=== PATIENT | female | born 1970 | race Caucasian/White ===

== ENCOUNTER 2017-05-01 17:07 | Observation (INO) ==
[2017-05-01] MEDS ORDERED: Vancomycin 1,000 MG in D5% in Water 250 ML IVPB ONE ×2 (17:52→21:46)
[2017-05-01] MEDS ORDERED: Piperacillin/Tazobactam 3.375 GM in D5% in Water (Mini-Bag+) 100 ML IVPB ONE ×2 (17:52→20:55)
--- NOTE | 2017-05-01 17:55 | Emergency Department Note ---
Disposition Clinical Impression: Bilateral lower leg cellulitis Disposition: Admitted As Inpatient Condition: Good Referrals: Laureano Diaz MD [Primary Care Provider] - Forms: ED Satisfaction Letter Time of Disposition: 20:04 Extremity Problem HPI - General Chief complaint: ED Extremity Problem,Nontraumatic Stated complaint: leg swelling Time Seen by Provider: 05/01/17 17:40 Source: patient, EMS Mode of arrival: EMS Limitations: no limitations Nursing Notes Reviewed: Yes Vital Signs Reviewed: Yes - History of Present Illness HPI Narrative: 46-year-old female with history of diabetic neuropathy and cellulitis in her lower extremities presents with a two-week history of increasing swelling in her lower legs with increased redness. No fever. She has had some drainage. She states 3 of her toenails and fallen off in the last several days. Hospitalized about 9 months ago for the same. Pt Subjective Complaint: extremity pain, extremity swelling, other (Extremity redness) Onset (ago): week(s) (2) Consistency: constant Injury Location: left, right, lower extremity Pain Scale: 9 Quality: burning Improves with: elevation Worsens with: weight bearing, walking Associated symptoms: Reports: denies other symptoms Context: other (History of cellulitis) - Related Data Home Medications Medication Instructions Recorded Confirmed Gabapentin [Neurontin] 100 mg PO TID 05/01/17 05/01/17 NovoLOG 05/01/17 Victoza 2-Main 05/01/17 Previous Rx's Medication Instructions Recorded HYDROcodone/Acet 5/325 mg [[place] 1 tab PO Q6H PRN #120 tablet 05/23/16 5-325 mg] Insulin Glargine [Lantus] 15 unit SQ HS 365 Days 05/23/16 Levothyroxine [Synthroid] 200 mcg PO DAILY@0630 tablet 05/23/16 Potassium Chloride 10 meq PO BIDWM tab.er.prt 05/23/16 metFORMIN [Glucophage] 500 mg PO BIDWM 365 Days 05/23/16 Allergies Allergy/AdvReac Type Severity Reaction Status Date / Time No Known Allergies Allergy Verified 08/06/15 18:19 All systems ED: reviewed and negative except as stated. Constitutional: Denies: fever, chills ENT ED: Denies: ear pain, throat pain Cardiovascular: Denies: chest pain Respiratory: Denies: cough, dyspnea Gastrointestinal: Denies: abdominal pain, nausea, vomiting, diarrhea Musculoskeletal: Reports: as per HPI (Swelling of lower extremities) Integumentary: Reports: other (Erythema lower extremities) Neurological: Reports: numbness, paresthesias (Chronic) Past Medical History - Past Medical History Medical history: Reports: CHF, diabetes, hepatitis, hyperlipidemia, hypertension , kidney stones, liver disease, migraine, renal disease, thyroid disease Surgical history: Reports: (2), cholecystectomy Psychiatric history: Reports: anxiety, bipolar, depression, panic disorder, prior suicide attempt, previous psychiatric hospitalization 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 Absent: lymphadenopathy - Respiratory Respiratory exam: Present: normal lung sounds bilaterally. Absent: respiratory distress, wheezes - Cardiovascular Cardiovascular exam: Present: regular rate, normal rhythm, normal heart sounds - Abdominal Exam Abdominal exam: Present: soft, Non-Tender, other (Obese) - Extremities Exam Extremities exam: Present: other (3-4+ nonpitting edema starting just below the knees bilaterally. Mild edema of the thighs. There is diffuse erythema starting below the knees bilaterally extending down in the ankles and feet. There are some scattered areas of erythema and excoriation the right anterior lateral thigh. The toenail has fallen off both great toes in the left fourth toe.) - Neurological Exam Neurological exam: Present: alert, oriented X3 - Psychiatric Psychiatric exam: Present: normal affect, normal mood - Skin Skin exam: Present: erythema (Both lower extremities from the knees down) Course Vital Signs Temperature 98.1 F 05/01/17 17:09 Pulse Rate 90 05/01/17 17:09 Respiratory Rate 20 05/01/17 17:09 Blood Pressure 121/69 05/01/17 17:09 O2 Sat by Pulse Oximetry 98 05/01/17 17:09 Temperature 98.1 F 05/01/17 17:09 Pulse Rate 81 05/01/17 19:20 Respiratory Rate 20 05/01/17 19:20 Blood Pressure 134/17 05/01/17 19:20 O2 Sat by Pulse Oximetry 87 05/01/17 19:20 Oxygen Delivery Oxygen Delivery Room Air Procedures - Central Line Placement Right Femoral Central Line Inserted*: Yes Central Line Insertion: emergent Consent Obtained: verbal consent, written consent Procedural Pause: verify patient name and date of , timeout performed per policy, assemble equipment and verify supplies, perform hand hygiene Patient Placed on Monitor/Pulse Ox: Yes During the Procedure: clinician is wearing sterile gloves, cap, mask,& gown during insertion, sterile field and sterile technique are maintained Central Line Prep: Chlorhexidine scrub Prep the Procedure Site: apply chloraprep to the skin using a back and forth scrubbing motion, apply chloraprep for 30 seconds (upper body), 1-2 min ( femoral sites), allow prep to dry, drape the patient with a full body drape Local Anesthetic: lidocaine 1% Amount of anesthesia used (mL): 5 Ultrasound Used for Placement: No Central Line Lumen Inserted: triple Post Procedure: sutured in place, good blood return, all ports aspirated, flushed, capped, sterile dressing applied, guide wire removed and visualized Patient Tolerated Procedure: well, no complications Complications: none Name of Clinician Inserting Central Line: Wilman Ambriz MD Extremity Problem, [place] - [facility] Narrative Medical decision making narrative: Differential includes but is not limited to ask her compromised, cellulitis, dermatitis, neuropathy. - Lab Data Lab results reviewed: Yes I reviewed the patient's lab results. Result diagrams: 05/01/17 19:10 05/01/17 19:10 Lab Results 05/01/17 05/01/17 05/01/17 Range/Units 19:10 19:10 19:10 WBC 9.8 (4.3-11.1) K/mcL RBC 4.21 (3.82-4.97) M/mcL Hgb 10.2 L (11.5-15.4) g/dL Hct 32.2 L (35.3-44.9) % MCV 76.5 L (83.0-100.0) fL MCH 24.2 L (28.0-33.3) pg MCHC 31.7 (31.6-35.5) g/dL RDW 15.9 H (11.5-14.5) % Plt Count 430 H (140-400) K/mcL MPV 9.0 L (9.4-12.4) fL Immature Gran % 0.4 (0-4) % Seg Neutrophils % 63.0 % Lymphocytes % 22.4 % Monocytes % 7.4 % Eosinophils % 6.0 % Basophils % 0.8 % Neutrophils # 6.2 (1.6-8.9) K/mcL Lymphocytes # 2.2 (0.6-4.6) K/mcL Monocytes # 0.7 (0.0-1.3) K/mcL Eosinophils # 0.6 (0.0-0.6) K/mcL Basophils # 0.1 (0.0-0.2) K/mcL VBG Lactic Acid 1.3 (0.5-2.2) mmol/L Sodium 134 L (136-145) mEq/L Potassium 4.2 (3.5-4.5) mEq/L Chloride 98 (98-109) mEq/L Carbon Dioxide 25 (19-29) mEq/L BUN 20 (7-20) mg/dL Creatinine 1.21 H (0.57-1.11) mg/dL Est GFR ( Amer) 58 L (> 60) Est GFR (Non-Af Amer) 48 L (> 60) BUN/Creatinine Ratio 17 (6-26) Glucose 346 H (70-99) mg/dL Calculated Osmolality 294 (280-300) Calcium 9.1 (8.6-10.8) mg/dL Total Bilirubin 0.3 (0.2-1.2) mg/dL AST 12 (5-34) Units/L ALT 8 (0-55) Units/L Alkaline Phosphatase 95 (38-126) Units/L Serum Total Protein 7.6 (6.0-8.3) g/dL Albumin 2.7 L (3.5-5.0) g/dL Globulin 4.9 H (2.4-3.5) g/dL Albumin/Globulin Ratio 0.6 L (1.1-2.2)
[2017-05-01 19:22] LABS: Basophils # 0.1 K/mcL (0.0-0.2); Basophils % 0.8 %; Eosinophils # 0.6 K/mcL (0.0-0.6); Hematocrit 32.2 % (35.3-44.9); Hemoglobin 10.2 g/dL (11.5-15.4); Immature Granulocytes % 0.4 % (0-4); Lymphocytes # 2.2 K/mcL (0.6-4.6); Lymphocytes % 22.4 %; Mean Corpuscular HGB Conc 31.7 g/dL (31.6-35.5); Mean Corpuscular Hemoglobin 24.2 pg (28.0-33.3); Mean Corpuscular Volume 76.5 fL (83.0-100.0); Monocytes # 0.7 K/mcL (0.0-1.3); Monocytes % 7.4 %; Neutrophils # 6.2 K/mcL (1.6-8.9); Platelet Count 430 K/mcL (140-400); Red Blood Count 4.21 M/mcL (3.82-4.97); Red Cell Distribution Width 15.9 % (11.5-14.5)
[2017-05-01 19:40] LABS: Albumin 2.7 g/dL (3.5-5.0); Albumin/Globulin Ratio 0.6 (1.1-2.2); Bilirubin,Total 0.3 mg/dL (0.2-1.2); Calcium 9.1 mg/dL (8.6-10.8); Globulin 4.9 g/dL (2.4-3.5); Potassium 4.2 mEq/L (3.5-4.5); Total Protein 7.6 g/dL (6.0-8.3)
[2017-05-01] MEDS ORDERED: Ondansetron 4 MG/2 ML VIAL IVP ONE (19:50)
[2017-05-01] MEDS ORDERED: *HR* Morphine 2 MG/ML SYRINGE IVP ONE (19:50)
[2017-05-01] MEDS ORDERED: Naloxone 0.4 MG/ML INJ IVP PRN (20:55)
[2017-05-01] MEDS ORDERED: Vancomycin 2,000 MG in D5% in Water 250 ML IVPB SCH (21:00)
[2017-05-01] MEDS ORDERED: Insulin DETEMIR 100 UNIT/ML per UNIT SQ ONE (21:45)
[2017-05-01] MEDS: Gabapentin 100 MG CAPSULE PO SCH (22:23)
[2017-05-01] MEDS: Piperacillin/Tazobactam 3.375 GM in D5% in Water (Mini-Bag+) 100 ML IVPB SCH (23:36)
[2017-05-02] MEDS: Piperacillin/Tazobactam 3.375 GM in D5% in Water (Mini-Bag+) 100 ML IVPB SCH ×3 (05:49→23:00)
[2017-05-02] MEDS: *HR* Metformin 500 MG TABLET PO SCH ×2 (08:23→16:41)
[2017-05-02] MEDS: Gabapentin 100 MG CAPSULE PO SCH ×3 (08:23→20:28)
--- NOTE | 2017-05-02 09:46 | Internal Med History&Physical ---
Date of Encounter: 05/02/17 Time of Encounter: 09:15 Assessment and Plan (1) Bilateral lower leg cellulitis Current visit: Yes Status: Acute She has been started on vancomycin and Zosyn. Will add lactobacillus. She will likely need several days of IV antibiotics based on the extent of infection (2) DM type 2 (diabetes mellitus, type 2) Current visit: No Status: Chronic We will check hemoglobin A1c in a.m. Continue Accu-Cheks with SSI. 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 Qualifiers: Hypothyroidism type: unspecified Qualified Code(s): E03.9 - Hypothyroidism , unspecified (4) Anemia Current visit: No Status: Chronic We will check anemia testing in a.m. Qualifiers: Anemia type: unspecified type Qualified Code(s): D64.9 - Anemia, unspecified (5) Vitamin D deficiency Current visit: No Status: Chronic We will check vitamin D level in a.m. (6) Edema Current visit: No Status: Chronic Will add IV Lasix. Check BN peptide in a.m. Qualifiers: Edema type: unspecified Qualified Code(s): R60.9 - Edema, unspecified (7) Azotemia Current visit: Yes Status: Acute Creatinine has risen from 0.99 on 06/19/2016 to 1.21 at present time. We will recheck labs in a.m. Internal Medicine - H&P: HPI Chief complaint: Leg redness and swelling Admitted From: Home Plans for Post Hospital Care: Home History of present illness: Ms. Yadav is a 46 year old female who came to emergency room stating she had increasing redness and swelling in her legs over the last 2 weeks. She had been seen by her PCP approximately 2 weeks ago and he recommended she be admitted to the hospital. She declined admission. Her significant other became more concerned and she was brought to emergency room yesterday and was found to have bilateral leg cellulitis. She was admitted to [facility] for ongoing care needs. She had a previous similar episode approximately one year ago. Past Med Surg Social Fam HX - Past Medical History Medical history: CHF, diabetes, hepatitis, hyperlipidemia, hypertension, kidney stones, liver disease, migraine, renal disease, thyroid disease Psychiatric history: anxiety, bipolar, depression, panic disorder, prior suicide attempt, previous psychiatric hospitalization - Past Surgical History Surgical History: , cholecystectomy - Social History Smoking Status: Never smoker Smokeless Tobacco Status: No Alcohol use: none Drug use: none - Family History Sister Living Status: Hx Family Cancer: Yes Mother Living Status: Hx Family Cancer: Yes Father Living Status: Hx Family Cancer: Yes Internal Medicine - H&P: Meds HYDROcodone/Acet 5/325 mg [[place] 5-325 mg] 1 tab PO Q6H PRN #120 tablet [Rx] Insulin Glargine [Lantus] 15 unit SQ HS 365 Days 05/23/16 [Rx] Levothyroxine [Synthroid] 200 mcg PO DAILY@0630 tablet 05/23/16 [Rx] Potassium Chloride 10 meq PO BIDWM tab.er.prt 05/23/16 [Rx] metFORMIN [Glucophage] 500 mg PO BIDWM 365 Days 05/23/16 [Rx] Gabapentin [Neurontin] 100 mg PO TID 05/01/17 [History] NovoLOG 05/01/17 [History] Victoza 2-Main 05/01/17 [History] Allergies No Known Allergies Allergy (Verified 08/06/15 18:19) All Systems PM: A 10-system review of systems was performed and is negative for pertinent findings except as documented above in the HPI. Review of systems: Gen.: Her weight has fluctuated in the past year related to fluid retention. Cardiovascular: She is uncertain if she has a diagnosis of heart failure. BN peptide was normal at 52 on 05/21/2016. She has had edema as per history of present illness but denies hypertension [place] DVT or pulmonary embolus Respiratory: She is a lifelong nonsmoker and has no known chronic lung disease GI: She has had cholecystectomy. She denies disorders of her liver or exocrine pancreas : She had a kidney stone several years ago. She was found to have azotemia on blood work in the emergency room. She denies other kidney or bladder disorders. Neurologic: She denies large distribution strokes or seizures Endocrine: She is diagnosed with diabetes in 1994. She has hypothyroidism but denies hyperlipidemia. Hematology/oncology: She denies blood disorders or cancers. She had microcytic anemia found on blood work in the emergency room. Psychiatric: She has anxiety but denies depression or other mental health issues Musculoskeletal: She denies arthritis gout other bone joint or muscle disorders. - Constitutional Vitals: Temp Pulse Resp BP Pulse Ox 98.3 F 92 16 92/55 91 05/02/17 07:29 05/02/17 07:29 05/02/17 07:29 05/02/17 07:29 05/02/17 07:29 Exam: Gen.: She is well-developed morbidly obese female lying in bed who appears in mild discomfort when her legs are moved. HEENT: Head is atraumatic and normocephalic. Eyes: EOMI. There is no scleral icterus. Mouth: Mucosa is moist. Neck: Supple and nontender. There is no thyromegaly or adenopathy noted. Heart: Regular without murmurs gallops or ectopics. Lungs: No wheezes or crackles are heard. Abdomen: Soft and nontender. No masses or guarding are noted. She has a large abdomen. Extremities: She has significant erythema with trace to 1+ pitting edema and woody edema of her lower legs. She has a shallow ulcerative area approximately 10 cm maximum diameter on her right anterior lateral lower hughes with gauze wrap in place. There is no evidence of secondary infection. There is erythema involving most the lower leg skin bilaterally extending down into the toes. She has erythema also extending up into the right posterior thigh. Neurologic: Mental status: She is talkative and seems to be a reliable historian. Cranial nerves: Smile is symmetric. Forehead wrinkles bilaterally. Tongue protrudes midline. EOMI. Motor: There is no pronator drift. Cerebellar: Finger to nose is intact bilaterally. Skin: She has erythema with ulceration of the leg skin as per above Internal Med - H&P Results - Labs CBC & Chem 7: 05/01/17 19:10 05/01/17 19:10
[2017-05-02] MEDS: Vancomycin 1,750 MG in D5% in Water 500 ML IVPB SCH ×2 (09:55→20:29)
[2017-05-02] MEDS ORDERED: Dextrose Gel 15 GM PO PRN ×2 (12:44)
[2017-05-02] MEDS ORDERED: D5% in Water 1,000 ML IVC PRN (12:44)
[2017-05-02] MEDS ORDERED: *HR* Dextrose 50 % in Water (Syg) 50 ML SYRINGE IVP PRN (12:44)
[2017-05-02] MEDS: Lactobacillus 1 EACH CAP.SPRINK PO SCH ×2 (12:56→20:28)
[2017-05-02] MEDS: Furosemide 20 MG/2 ML VIAL IVP SCH ×2 (12:57→18:40)
[2017-05-02] MEDS: Insulin LISPRO 300 UNITS/3 ML VIAL SQ SCH ×3 (13:13→20:28)
[2017-05-02] MEDS: Insulin DETEMIR 100 UNIT/ML X5UNITS SQ SCH (20:28)
[2017-05-03] MEDS: Piperacillin/Tazobactam 3.375 GM in D5% in Water (Mini-Bag+) 100 ML IVPB SCH ×3 (05:45→22:54)
[2017-05-03 06:24] LABS: Magnesium 1.7 mg/dL (1.6-2.6)
[2017-05-03 06:54] LABS: Thyroid Stimulating Hormone 50.568 mcIU/mL (0.350-4.840)
[2017-05-03] MEDS: Gabapentin 100 MG CAPSULE PO SCH ×3 (07:41→20:37)
[2017-05-03] MEDS: *HR* Metformin 500 MG TABLET PO SCH ×2 (07:42→16:57)
[2017-05-03] MEDS: Lactobacillus 1 EACH CAP.SPRINK PO SCH ×2 (07:42→20:37)
[2017-05-03] MEDS: Furosemide 20 MG/2 ML VIAL IVP SCH ×2 (07:44→16:58)
[2017-05-03] MEDS: Insulin LISPRO 300 UNITS/3 ML VIAL SQ SCH ×4 (07:44→20:28)
--- NOTE | 2017-05-03 10:00 | Internal Med Progress Note ---
Date of Encounter: 05/03/17 Time of Encounter: 09:58 - Assessment and plan (1) Bilateral lower leg cellulitis Current Visit: Yes Status: Acute Assessment and plan: Improved, but remains moderate. No cultures have been sent. Will continue current pip/tazo and vancomycin regimen. Vanc dosing per pharmacy. (2) Hypothyroidism Current Visit: Yes Status: Chronic Assessment and plan: Uncontrolled secondary to med non-compliance. Importance of taking thyroid replacement as directed was discussed. Will continue current replacement for now. Qualifiers: Hypothyroidism type: unspecified Qualified Code(s): E03.9 - Hypothyroidism , unspecified (3) Anemia Current Visit: Yes Status: Chronic Assessment and plan: Mild. Stable. Anemia studies pending. Qualifiers: Anemia type: unspecified type Qualified Code(s): D64.9 - Anemia, unspecified (4) DM type 2 (diabetes mellitus, type 2) Current Visit: Yes Status: Chronic Assessment and plan: Uncontrolled. Pt follows closely with PCP at outpatient. Will continue current regimen with sliding scale for now. 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 Swelling and erythema has improved. Pt without acute complaints this AM. Pain well-controlled. - Constitutional Vitals: Temp Pulse Resp BP Pulse Ox 98.2 F 83 14 104/57 96 05/03/17 07:12 05/03/17 07:12 05/03/17 07:12 05/03/17 07:12 05/03/17 07:12 Exam: Gen: Lying in bed, NAD, obese HEENT: NC, AT Neck: Trachea midline, no mass Pulm: No respiratory distress, CTAB CV: Normal S1 and S2, RRR Abdomen: Soft, ND, NT Ext: bilateral erythema and 3+ pitting edema to knees bilaterally; approx 12 cm superficial ulceration noted involving lateral aspect of right distal extremity ; 2+ DP pulses bilaterally, normal warmth of both feet Neuro: No appreciable motor/sensor deficits Skin: Warm and dry, leg skin exam as above Psych: A&Ox3 Internal Medicine: Result - Labs CBC & Chem 7: 05/01/17 19:10 05/03/17 08:30 Consult Discharge Plan - Plan Referrals: Laureano Diaz MD [Primary Care Provider] - 1 week
[2017-05-03 10:03] LABS: BUN/Creatinine Ratio 12 (6-26); Blood Urea Nitrogen 16 mg/dL (7-20); eGFR For African Americans 51 (> 60); eGFR For Non-African Americans 42 (> 60)
[2017-05-03 10:23] LABS: Vancomycin,Trough 29.8 mcg/mL (10-20)
[2017-05-03 11:29] LABS: Folate 8.6 ng/mL (7.0-31.4)
[2017-05-03] MEDS: *HR* HYDROcodone/Acet 5/325 mg TABLET PO PRN (14:55)
[2017-05-03] MEDS: Vancomycin 1,750 MG in D5% in Water 500 ML IVPB SCH (19:18)
[2017-05-03] MEDS: Insulin DETEMIR 100 UNIT/ML X5UNITS SQ SCH (20:28)
[2017-05-04 04:58] LABS: Albumin 2.5 g/dL (3.5-5.0); Phosphorous 3.9 mg/dL (2.3-4.7); Potassium 4.2 mEq/L (3.5-4.5)
[2017-05-04] MEDS: Piperacillin/Tazobactam 3.375 GM in D5% in Water (Mini-Bag+) 100 ML IVPB SCH ×3 (06:26→21:46)
[2017-05-04] MEDS: Lactobacillus 1 EACH CAP.SPRINK PO SCH ×2 (08:25→21:45)
[2017-05-04] MEDS: Gabapentin 100 MG CAPSULE PO SCH ×3 (08:25→21:45)
[2017-05-04] MEDS: *HR* Metformin 500 MG TABLET PO SCH ×2 (08:26→16:37)
[2017-05-04] MEDS: Furosemide 20 MG/2 ML VIAL IVP SCH ×2 (08:27→16:35)
[2017-05-04] MEDS: Insulin LISPRO 300 UNITS/3 ML VIAL SQ SCH ×6 (08:28→21:46)
--- NOTE | 2017-05-04 08:54 | Internal Med Progress Note ---
Date of Encounter: 05/04/17 Time of Encounter: 08:52 - Assessment and plan (1) Bilateral lower leg cellulitis Current Visit: Yes Status: Acute Assessment and plan: Continues to improve, but remains moderate. There is likely underlying venous stasis dermatitis as well. No cultures pending. Will continue current pip/tazo and vancomycin regimen. Vanc dosing per pharmacy. (2) Venous stasis dermatitis of both lower extremities Current Visit: Yes Status: Acute Assessment and plan: Compenent of bilateral leg erythema and warmth likely venous stasis dermatitis given bilateral nature and degree of chronic pitting edema. Leg elevation, low sodium diet and avoidance of excessive fluids as discussed. Will continue IV lasix diuresis and place on topical steroid. (3) Acute renal failure Current Visit: Yes Status: Acute Assessment and plan: Mild. Likely secondary to IV diuresis. Will monitor for now. Renal panel ordered for AM. Qualifiers: Acute renal failure type: unspecified Qualified Code(s): N17.9 - Acute kidney failure, unspecified (4) DM type 2 (diabetes mellitus, type 2) Current Visit: Yes Status: Chronic Assessment and plan: Uncontrolled with dietary non-compliance and under-dosed insulin regimen. Will increase insulin to patient's home regimen of 30unit bolus TIDAC and 70 units basal qhs. Will give one 30 unit NPH dose now to provide basal bridge until increased basal injection tonight. Pt follows closely with PCP at outpatient. Will continue sliding scale. Diabetic diet discussed with patient. 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 Importance of taking thyroid replacement as directed has been discussed. Will continue current replacement for now. Qualifiers: Hypothyroidism type: unspecified Qualified Code(s): E03.9 - Hypothyroidism , unspecified (6) Anemia Current Visit: Yes Status: Chronic Assessment and plan: Mild. Stable. Iron deficiency on labs. Will begin replacement. Qualifiers: Anemia type: iron deficiency Iron deficiency anemia type: unspecified iron deficiency Qualified Code(s): D50.9 - Iron deficiency anemia, unspecified (7) Vitamin D deficiency Current Visit: Yes Status: Chronic Assessment and plan: Uncontrolled. Will add replacement and monitor. - Time Spent With Patient less than 15 minutes - Subjective Interval history: Pt did well overnight with no acute events. Swelling and erythema remains moderate, but continues to improve. FSBG readings have been elevated. Pt has been drinking considerable home grape juice last evening and overnight. Pt without acute complaints this AM. No acute events per nursing. - Constitutional Vitals: Temp Pulse Resp BP Pulse Ox 98.1 F 81 18 107/70 98 05/04/17 07:18 05/04/17 07:18 05/04/17 07:18 05/04/17 07:18 05/04/17 07:18 Exam: Gen: Lying in bed, NAD, obese HEENT: NC, AT Neck: Trachea midline, no mass Pulm: No respiratory distress, CTAB CV: Normal S1 and S2, RRR Abdomen: Soft, ND, NT Ext: bilateral erythema and 3+ pitting edema to knees bilaterally; approx 12 cm superficial ulceration noted involving lateral aspect of right distal extremity Neuro: No appreciable motor/sensor deficits Skin: Warm and dry, leg skin exam as above Psych: A&Ox3 Internal Medicine: Result - Labs CBC & Chem 7: 05/01/17 19:10 05/04/17 04:00 Labs: BMP 05/03/17 05/04/17 08:30 04:00 Sodium 133 L Potassium 4.2 Chloride 93 L Carbon Dioxide 27 BUN 16 16 Creatinine 1.36 H 1.36 H Glucose 414 H Calcium 9.0 Liver Function 05/04/17 Range/Units 04:00 Albumin 2.5 L (3.5-5.0) g/dL Consult Discharge Plan - Plan Referrals: Laureano Diaz MD [Primary Care Provider] - 1 week
[2017-05-04] MEDS ORDERED: Insulin NPH 100 UNIT/ML (x5UNIT) SQ ONE (09:08)
[2017-05-04] MEDS: *HR* HYDROcodone/Acet 5/325 mg TABLET PO PRN ×2 (09:10→22:02)
[2017-05-04] MEDS: Triamcinolone Acet 0.1% CRM 15 GM TUBE TP SCH ×2 (10:01→21:45)
[2017-05-04] MEDS: Vancomycin 750 MG in D5% in Water 250 ML IVPB SCH (10:18)
[2017-05-04] MEDS: *HR* Enoxaparin 40 MG/0.4 ML SYRINGE SQ SCH (10:21)
[2017-05-04] MEDS: Cholecalciferol (D-3) 1,000 UNIT TABLET PO SCH (10:21)
[2017-05-04] MEDS ORDERED: Vancomycin 1,750 MG in D5% in Water 500 ML IVPB SCH (11:00)
[2017-05-04] MEDS ORDERED: Insulin DETEMIR 100 UNIT/ML X5UNITS SQ SCH (21:00)
[2017-05-05] MEDS ORDERED: Aminoglycoside Consult 1 EACH MC ONE
[2017-05-05] MEDS: Vancomycin 750 MG in D5% in Water 250 ML IVPB SCH (00:29)
[2017-05-05] MEDS: *HR* HYDROcodone/Acet 5/325 mg TABLET PO PRN (04:10)
[2017-05-05 05:52] LABS: Basophils # 0.1 K/mcL (0.0-0.2); Basophils % 0.9 %; Eosinophils # 0.9 K/mcL (0.0-0.6); Eosinophils % 8.3 %; Hematocrit 31.8 % (35.3-44.9); Hemoglobin 9.9 g/dL (11.5-15.4); Immature Granulocytes % 0.7 % (0-4); Lymphocytes # 3.2 K/mcL (0.6-4.6); Lymphocytes % 29.7 %; Mean Corpuscular HGB Conc 31.1 g/dL (31.6-35.5); Mean Platelet Volume 9.2 fL (9.4-12.4); Monocytes # 0.7 K/mcL (0.0-1.3); Monocytes % 6.5 %; Neutrophils # 5.8 K/mcL (1.6-8.9); Platelet Count 427 K/mcL (140-400); Red Blood Count 4.13 M/mcL (3.82-4.97); Red Cell Distribution Width 16.2 % (11.5-14.5); Segmented Neutrophils % 53.9 %
[2017-05-05 06:08] LABS: Albumin 2.7 g/dL (3.5-5.0); Calcium 9.6 mg/dL (8.6-10.8); Phosphorous 4.4 mg/dL (2.3-4.7); Potassium 4.3 mEq/L (3.5-4.5)
[2017-05-05] MEDS: *HR* Enoxaparin 40 MG/0.4 ML SYRINGE SQ SCH (06:51)
[2017-05-05] MEDS: Piperacillin/Tazobactam 3.375 GM in D5% in Water (Mini-Bag+) 100 ML IVPB SCH (07:00)
[2017-05-05 08:09] VITALS: BP 108/75
[2017-05-05] MEDS: *HR* Metformin 500 MG TABLET PO SCH (08:11)
[2017-05-05] MEDS: Gabapentin 100 MG CAPSULE PO SCH (08:11)
[2017-05-05] MEDS: Cholecalciferol (D-3) 1,000 UNIT TABLET PO SCH (08:12)
[2017-05-05] MEDS: Lactobacillus 1 EACH CAP.SPRINK PO SCH (08:12)
[2017-05-05] MEDS: Insulin LISPRO 300 UNITS/3 ML VIAL SQ SCH ×2 (08:14)
[2017-05-05] MEDS: Furosemide 20 MG/2 ML VIAL IVP SCH (08:15)
--- NOTE | 2017-05-05 09:10 | Discharge Summary ---
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 (3) Hypothyroidism Priority: Secondary Status: Chronic Qualifiers: Hypothyroidism type: unspecified Qualified Code(s): E03.9 - Hypothyroidism , unspecified (4) Anemia Priority: Secondary Status: Chronic Qualifiers: Anemia type: iron deficiency Iron deficiency anemia type: unspecified iron deficiency Qualified Code(s): D50.9 - Iron deficiency anemia, unspecified (5) Vitamin D deficiency Priority: Secondary Status: Chronic (6) Edema Priority: Secondary Status: Chronic Qualifiers: Edema type: unspecified Qualified Code(s): R60.9 - Edema, unspecified (7) Azotemia Priority: Secondary Status: Acute - Discharge Medications Prescriptions: Amoxicillin/Clavulanate [Augmentin] 875 mg PO BIDWM #10 tablet Ascorbic Acid [Vitamin C] 500 mg PO DAILY #30 tablet.er Bumetanide [Bumex] 1 mg PO DAILY #30 tablet Cholecalciferol (D-3) [Vitamin D] 2,000 unit PO DAILY #60 tablet Doxycycline 100 mg PO BID #10 capsule Ferrous Sulfate 325 mg PO DAILY #30 tablet.dr Lactobacillus [Culturelle] 1 each PO BID #10 cap.sprink Home Medications: HYDROcodone/Acet 5/325 mg [[place] 5-325 mg] 1 tab PO Q6H PRN #120 tablet [Rx] Levothyroxine [Synthroid] 200 mcg PO DAILY@0630 tablet 05/23/16 [Rx] Potassium Chloride 10 meq PO BIDWM tab.er.prt 05/23/16 [Rx] metFORMIN [Glucophage] 500 mg PO BIDWM 365 Days 05/23/16 [Rx] Gabapentin [Neurontin] 100 mg PO TID 05/01/17 [History] NovoLOG 05/01/17 [History] Victoza 2-Main 05/01/17 [History] Amoxicillin/Clavulanate [Augmentin] 875 mg PO BIDWM #10 tablet 05/05/17 [Rx] Ascorbic Acid [Vitamin C] 500 mg PO DAILY #30 tablet.er 05/05/17 [Rx] Bumetanide [Bumex] 1 mg PO DAILY #30 tablet 05/05/17 [Rx] Cholecalciferol (D-3) [Vitamin D] 2,000 unit PO DAILY #60 tablet 05/05/17 [Rx] Doxycycline 100 mg PO BID #10 capsule 05/05/17 [Rx] Ferrous Sulfate 325 mg PO DAILY #30 tablet. 05/05/17 [Rx] Insulin Glargine [Lantus] 40 unit SQ HS 365 Days 05/05/17 [Rx] Lactobacillus [Culturelle] 1 each PO BID #10 cap.sprink 05/05/17 [Rx] Allergies/Adverse Reactions: Allergies No Known Allergies Allergy (Verified 08/06/15 18:19) Date of admission: 05/01/17 20:44 Primary care physician: Laureano Diaz MD - Patient Status Disposition: Home Health Service Condition: Good Functional capacity at discharge: independent ambulation Overall status at discharge: patient is progressing back to baseline - Discharge Instructions Follow Up With: Laureano Diaz MD [Primary Care Provider] - 1 week - Diet and Activity Activity: resume usual activities as tolerated Diet: diabetic diet Hospital course: Ms. Yadav is a 46 year old female who came to emergency room stating she had increasing redness and swelling in her legs over the last 2 weeks. She had been seen by her PCP approximately 2 weeks ago and he recommended she be admitted to the hospital. She declined admission. Her significant other became more concerned and she was brought to emergency room yesterday and was found to have bilateral leg cellulitis. She was admitted to [facility] floor for ongoing care needs. Initial orders were written by the emergency room physician. I saw her on May 02 and performed a history and physical. She was started on IV vancomycin and Zosyn. Lactobacillus was added. She had significant improvement in the erythema and discomfort in her legs during hospitalization. She was given IV Lasix and there was decrease in edema. Bn peptide returned normal at 51. Dr. Jimenez covered for me May 03 and . When I saw her on May 05 she looked significantly improved and I felt was stable for discharge home. She will continue with oral antibiotics and probiotic for 5 additional days after discharge. She will follow with her PCP Dr. Diaz within 1 week. Her azotemia did not significantly change during hospitalization. Her creatinine was 1.36 with estimated GFR 42 on the day of discharge. Anemia testing showed iron 28, transferrin saturation 7%, transferrin 272, ferritin 12, B12 359, and folate 8.6. She was prescribed ferrous sulfate with vitamin C at discharge. TSH returned elevated at 50.568. She stated she had not been compliant in taking Synthroid at home. The prescribed dose will not be changed and she was encouraged to be more compliant. Vitamin D returned low at 19. She was prescribed supplemental vitamin D which will be continued at discharge. Her blood sugars remained above the desirable range. Lantus dose will be increased at discharge to 40 units daily at bedtime. Her PCP can further adjust her diabetic regimen. On May 05 she was stable for discharge home. She will have home health services to continue evaluation and monitoring of cellulitis and dressing for shallow right leg ulcer. - Time Spent with Patient Total time spent providing and/or coordinating discharge services: - Constitutional Vitals: Temp Pulse Resp BP Pulse Ox 98.3 F 82 20 108/75 97 05/05/17 08:08 05/05/17 08:08 05/05/17 08:08 05/05/17 08:08 05/05/17 08:08
--- NOTE | 2017-05-05 09:20 | Physician Discharge Referral ---
Home Health/Hosp Referral Info Transfer to: Home Health Attending Provider: Tashi Provider in Charge Post Discharge: PCP (Laureano Diaz M.D.) - Diagnosis (1) Bilateral lower leg cellulitis Priority: Primary Status: Acute (2) DM type 2 (diabetes mellitus, type 2) Priority: Secondary Status: Chronic (3) Hypothyroidism Priority: Secondary Status: Chronic (4) Anemia Priority: Secondary Status: Chronic (5) Vitamin D deficiency Priority: Secondary Status: Chronic (6) Edema Priority: Secondary Status: Chronic (7) Azotemia Priority: Secondary Status: Acute - Respiratory Orders Smoking Cessation: Smoking cessation has been advised. For more information, call the [place] Tobacco Quit Line at 0-035-YNUZ-NOW. - Diet/Nutrition Diet/Nutrition Orders: No Concentrated Sweets - Activity Activity Orders: Ambulate - Services Needed Following services are medically necessary services: Nursing, Home Health Aide, Physical Therapy, Occupational Therapy Home Care Orders: Monitor cellulitis. Continue Adaptic with gauze dressing to shallow right lower legs ulcer until healed. - Transfer Medications Prescriptions: Amoxicillin/Clavulanate [Augmentin] 875 mg PO BIDWM #10 tablet Ascorbic Acid [Vitamin C] 500 mg PO DAILY #30 tablet.er Bumetanide [Bumex] 1 mg PO DAILY #30 tablet Cholecalciferol (D-3) [Vitamin D] 2,000 unit PO DAILY #60 tablet Doxycycline 100 mg PO BID #10 capsule Ferrous Sulfate 325 mg PO DAILY #30 tablet. Lactobacillus [Culturelle] 1 each PO BID #10 cap.sprink Home Medications: HYDROcodone/Acet 5/325 mg [[place] 5-325 mg] 1 tab PO Q6H PRN #120 tablet [Rx] Levothyroxine [Synthroid] 200 mcg PO DAILY@0630 tablet 05/23/16 [Rx] Potassium Chloride 10 meq PO BIDWM tab.er.prt 05/23/16 [Rx] metFORMIN [Glucophage] 500 mg PO BIDWM 365 Days 05/23/16 [Rx] Gabapentin [Neurontin] 100 mg PO TID 05/01/17 [History] NovoLOG 05/01/17 [History] Victoza 2-Main 05/01/17 [History] Amoxicillin/Clavulanate [Augmentin] 875 mg PO BIDWM #10 tablet 05/05/17 [Rx] Ascorbic Acid [Vitamin C] 500 mg PO DAILY #30 tablet.er 05/05/17 [Rx] Bumetanide [Bumex] 1 mg PO DAILY #30 tablet 05/05/17 [Rx] Cholecalciferol (D-3) [Vitamin D] 2,000 unit PO DAILY #60 tablet 05/05/17 [Rx] Doxycycline 100 mg PO BID #10 capsule 05/05/17 [Rx] Ferrous Sulfate 325 mg PO DAILY #30 tablet. 05/05/17 [Rx] Insulin Glargine [Lantus] 40 unit SQ HS 365 Days 05/05/17 [Rx] Lactobacillus [Culturelle] 1 each PO BID #10 cap.sprink 05/05/17 [Rx] Allergies/Adverse Reactions: Allergies No Known Allergies Allergy (Verified 08/06/15 18:19) Certification: Further, I certify that my clinical findings support that this patient is homebound (i.e. absences from home require considerable and taxing effort and are for medical reasons or scientology services or infrequently or short duration when for other reasons) because: Homebound Reason: Patient requires assistance of a person or device to safely leave home, Absences from home are contraindicated except to recieve medical care, Leaving home requires considerable and taxing effort due to condition ( Bilateral leg cellulitis with right leg ulcer.) Attestation: My signature below is to certify that this patient is under my care and that I, or nurse practitioner, or a physician's family services assistant working with me, has a face-to -face encounter with this patient.
[2017-05-05] MEDS: Triamcinolone Acet 0.1% CRM 15 GM TUBE TP SCH (10:05)
== END 2017-05-05 11:41 | disposition home health service (06) ==
LOC: EMEROOPIK 17:07 → INPPIK 17:07
PROVIDERS: ADMIT Internal Medicine; ATTEND Internal Medicine